=== PATIENT | male | born 1960 | race Caucasian/White ===

== ENCOUNTER → 2025-08-13 07:25 | Outpatient (REF) | payer SELFPAY | LOC: HWRAD 07:25 | PROVIDERS: ATTENDING PHYSICIAN Internal Medicine; FAMILY PHYSICIAN Physician Assistant Medical | DX: I44.0 Atrioventricular block, first degree (principal); I44.4 Left anterior fascicular block; E78.00 Pure hypercholesterolemia, unspecified | CPT/HCPCS: 75571 ==

== ENCOUNTER → 2025-08-13 07:39 | Outpatient (REF) | payer OTHER, SELFPAY | LOC: HWRCS 07:39 | PROVIDERS: ATTENDING PHYSICIAN Internal Medicine; FAMILY PHYSICIAN Physician Assistant Medical | DX: I44.0 Atrioventricular block, first degree (principal); I44.4 Left anterior fascicular block; E78.00 Pure hypercholesterolemia, unspecified | CPT/HCPCS: 93306 ==